=== PATIENT | female | born 1930 | race Caucasian/White ===

== ENCOUNTER 2016-07-02 10:09 | Day surgery (SDC) | payer OTHER, MEDICARE ==
[2016-07-01 15:09] VITALS: BMI 21.5
[2016-07-02] MEDS ORDERED: PROPOFOL 20 ML ONE ×4 (11:57)
[2016-07-02 13:41] VITALS: TEMP 97.6
[2016-07-02 15:22] VITALS: BP 111/57; PULSE 76
--- NOTE | 2016-07-05 13:07 | PATH ---
Surgical Pathology Report Patient Name: HENRRY RAMOS [facility]. Rec. #: [id number] /Age/Gender: 1930 (Age: 85) / F Account: [id number] Location: U-ENDOSCOPY Taken: 07/02/2016 Received: 07/02/2016 Reported: 07/05/2016 Physicians: Alisha Hodgson M.D. Specimen(s) Received A: BX JEJUNUM B: BX POLYP TRANSVERSE COLON C: BX CECAL POLYP Clinical History GERD Colon polyps, hiatal hernia Final Diagnosis A. JEJUNUM, BIOPSY: SMALL BOWEL MUCOSA WITHOUT SIGNIFICANT PATHOLOGIC CHANGES. NO HISTOLOGIC EVIDENCE OF GLUTEN SENSITIVE ENTEROPATHY (CELIAC DISEASE). B. COLON TRANSVERSE, POLYP, BIOPSY: POLYPOID FRAGMENTS OF COLONIC MUCOSA WITH HYPERPLASTIC CHANGE. C. COLON, CECUM, POLYP, BIOPSY: TUBULAR ADENOMA. Electronically Signed John Martinez M.D. Gross Description A. Received in formalin, labeled "biopsy jejunum" is a wells, irregular portion of soft tissue measuring 0.3 cm in greatest dimension. The specimen is submitted in toto in one cassette. B. Received in formalin, labeled "polyp transverse colon" is a wells, irregular portion of soft tissue measuring 0.6 cm in greatest dimension. The specimen is submitted in toto in one cassette. C. Received in formalin, labeled "biopsy cecal polyp" is a wells, irregular portion of soft tissue measuring 0.4 cm in greatest dimension. The specimen is submitted in toto in one cassette. 07/02/201607/02/2016
== END 2016-07-02 14:10 | disposition home or self-care (01) ==
LOC: JASU-ENDO 10:09
PROVIDERS: ATTEND Internal Medicine Gastroenterology
PROC: 0DBH8ZX Excision of Cecum, Via Natural or Artificial Opening Endoscopic, Diagnostic (ICD-10-PCS; 2016-07-02)
PROC: 0DBL8ZX Excision of Transverse Colon, Via Natural or Artificial Opening Endoscopic, Diagnostic (ICD-10-PCS; principal; 2016-07-02 11:00)
DX: D50.9 Iron deficiency anemia, unspecified (principal); D12.3 Benign neoplasm of transverse colon; D12.0 Benign neoplasm of cecum; K64.8 Other hemorrhoids; K57.30 Diverticulosis of large intestine without perforation or abscess without bleeding; K63.89 Other specified diseases of intestine
CPT/HCPCS: 88305-TC

== ENCOUNTER 2017-08-25 07:32 | Day surgery (SDC) | payer OTHER, MEDICARE ==
[2017-08-25] MEDS ORDERED: IRON SUCROSE INJECTION 200 MG in SODIUM CHLORIDE 100 ML IVPB ONE (10:00)
[2017-08-25 15:51] VITALS: TEMP 97.7
[2017-08-25 15:54] VITALS: BP 118/61; PULSE 70
== END 2017-08-25 14:00 | disposition home or self-care (01) ==
LOC: JONCNONCHE 07:32 → J7W 13:03 → JONCNONCHE 14:00
PROVIDERS: ATTEND Internal Medicine Hematology & Oncology
PROC: 3E033GC Introduction of Other Therapeutic Substance into Peripheral Vein, Percutaneous Approach (ICD-10-PCS; principal; 2017-08-25)
DX: D50.9 Iron deficiency anemia, unspecified (principal)
CPT/HCPCS: 96365; J1756

== ENCOUNTER 2017-11-23 07:45 | Day surgery (SDC) | payer OTHER, MEDICARE ==
[2017-11-23] MEDS ORDERED: IRON SUCROSE INJECTION 200 MG in SODIUM CHLORIDE 100 ML IVPB ONE (13:00)
[2017-11-23 17:37] VITALS: TEMP 97.8
[2017-11-23 17:39] VITALS: BP 128/61; PULSE 70
== END 2017-11-23 13:45 | disposition home or self-care (01) ==
LOC: JONCNONCHE 07:45 → J7W 12:59 → JONCNONCHE 13:45
PROVIDERS: ATTEND Internal Medicine Hematology & Oncology
PROC: 3E033GC Introduction of Other Therapeutic Substance into Peripheral Vein, Percutaneous Approach (ICD-10-PCS; principal; 2017-11-23)
DX: D50.9 Iron deficiency anemia, unspecified (principal); C50.919 Malignant neoplasm of unspecified site of unspecified female breast; C76.0 Malignant neoplasm of head, face and neck
CPT/HCPCS: 96365; J1756

== ENCOUNTER 2017-12-02 07:28 | Day surgery (SDC) | payer OTHER, MEDICARE ==
[2017-12-02 12:08] VITALS: TEMP 97.9
[2017-12-02] MEDS ORDERED: IRON SUCROSE INJECTION 200 MG in SODIUM CHLORIDE 100 ML IVPB ONE (13:00)
[2017-12-02 14:36] VITALS: BP 129/64; PULSE 66
== END 2017-12-02 12:50 | disposition home or self-care (01) ==
LOC: JONCNONCHE 07:28 → J7W 10:22 → JONCNONCHE 12:50
PROVIDERS: ATTEND Internal Medicine Hematology & Oncology
PROC: 3E033GC Introduction of Other Therapeutic Substance into Peripheral Vein, Percutaneous Approach (ICD-10-PCS; principal; 2017-12-02)
DX: D64.9 Anemia, unspecified (principal)
CPT/HCPCS: 96365; J1756